=== PATIENT | male | born 2000 | race Caucasian/White ===

== ENCOUNTER 2022-04-01 11:47 | Emergency (ER) | payer OTHER ==
[2022-04-01 11:57] VITALS: BP 137/81
--- NOTE | 2022-04-01 12:15 | ED Physician Documentation ---
History of Present Illness - Stated complaint Stated Complaint: L FINGER LAC - Chief complaint Chief Complaint: Laceration - History obtained from History obtained from: Patient - History of Present Illness Timing: Today Pain level max: 0 Pain level now: 0 - Additonal information Additional information: 21-year-old male was cooking today when he excellently cut the tip of his left index finger with a knife. Unable to control the bleeding at home. Tetanus up-to-date. Patient is right-handed. Review of Systems Constitutional: denies: Fever GI: denies: Vomiting, Diarrhea Skin: denies: Rash Musculoskeletal: denies: Neck pain, Back pain Neurologic: denies: Headache PD PAST MEDICAL HISTORY - Past Medical History Past Medical History: No - Past Surgical History Past Surgical History: No - Present Medications Home Medications: Ambulatory Orders Medication Instructions Recorded Confirmed No Known Home Medications 04/01/22 04/01/22 - Allergies Allergies/Adverse Reactions: Allergies Allergy/AdvReac Type Severity Reaction Status Date / Time No Known Drug Allergies Allergy Verified 04/01/22 11:56 PD ED PE NORMAL - Vitals Vital signs reviewed: Yes - General General: Alert and oriented X 3, No acute distress - Derm Derm: Warm and dry - Extremities Extremities: Other (0.2 cm avulsion to the distal aspect of the left index finger. Still bleeding. Neurovascular intact.) - Neuro Neuro: Alert and oriented X 3 Results - Vitals Vitals: Vital Signs - 24 hr 04/01/22 11:54 Temperature 37 C Heart Rate 79 Respiratory 16 Rate Blood Pressure 137/81 H O2 Saturation 100 Oxygen O2 Source Room air Procedures - General procedure General procedure: Superficial avulsion to the tip of the left index finger. Finger tourniquet applied. Bleeding controlled. Dermabond was applied over the area. The tourniquet was then removed. Excellent hemostasis. No complications. Tetanus up-to-date PD Medical Decision Making - ED course Complexity details: considered differential, d/w patient ED course: Avulsion repaired with Dermabond. Tolerated well. No complications. Tetanus up-to-date. Warnings of infection and instructions on wound care given at bedside. patient counseled regarding signs and symptoms for which I believe and urgent re-evaluation would be necessary. Patient with good understanding of and agreement to plan and is comfortable going home at this time This document was made in part using voice recognition software. While efforts are made to proofread this document, sound alike and grammatical errors may occur. Departure - Departure Disposition: 01 Home, Self Care Clinical Impression: Finger laceration Qualifiers: Encounter type: initial encounter Finger: index finger Damage to nail status: without damage Foreign body presence: without foreign body Laterality: left Qualified Code(s): S61.211A - Laceration without foreign body of left index finger without damage to nail, initial encounter Condition: Good Instructions: ED Laceration Hand Follow-Up: your,doctor as needed [Other] Comments: Keep the wound clean. The glue will fall off on its own. Please return if you worsen. Do not apply ointment as this may dissolve the glue. Return for redness, swelling or drainage from the wound. Discharge Date/Time: 04/01/22 12:24
== END 2022-04-01 12:24 | disposition home or self-care (01) ==
LOC: ED 11:47
DX: S61.211A Laceration without foreign body of left index finger without damage to nail, initial encounter (principal); W26.0XXA Contact with knife, initial encounter; Y93.G1 Activity, food preparation and clean up
CPT/HCPCS: 12001; 99281

== ENCOUNTER 2023-06-07 11:00 | Outpatient (CLI) | payer OTHER ==
--- NOTE | 2023-06-07 11:44 | Sleep Patient Instructions ---
Sleep Center Visit Summary - Patient Visit Information Reason for Visit: Initial consult for evaluation of sleep disordered breathing and other sleep issues. - Patient Instructions Instructions Attached: Sleep Study Home Monitor Additional Instructions: You will be completing a sleep study, either an in-lab polysomnography (PSG) or home sleep study (HST). You will follow-up in the sleep care office after the sleep study is completed to hear the results and talk about therapy, if needed. You will be called by our office staff to schedule this appointment, but you may contact us with any questions. - Clinic Information Contact: [facility] [address] [place] [address] [email or web address] T: [phone]
--- NOTE | 2023-06-07 11:48 | SLEEP CARE CONSULTATION ---
Information from patient questionnaire entered by Christina Rodrigez. I have reviewed and concur with the information entered by Christina Rodrigez. This document represents the service I personally performed and the decisions made by me, Enriqueta Charles ARNP. History of Present Illness Service Date and Time: 06/07/2023 1100 Reason for Visit: New patient Chief Complaint: reports: Snoring, Excessive daytime sleepiness, Observed pauses in breathing, Fatigue (31YRS), Frequent awakenings at night Date of Onset: 1YR Usual bedtime: 2100 Time it takes to fall asleep: 1HR Snores at night: Yes Observed to quit breathing while asleep: Yes Sleeps alone due to snoring: No Number of times waking at night: 2-3 Reasons for waking at night: reports: Bathroom, Other (UNKNOWN). denies: Choking, Snoring, Gasping for air Toss, Turn, or Twitch while sleeping: Yes Recalls having dreams: Yes Usually gets out of bed at: 5AM; weekends [id number] Feels refreshed in the morning: No Morning headache: No Sleepy or fatigued during the day: Yes Ever fallen asleep while driving: No Takes day naps: No (has snored when napping sometimes) Dreams during day naps: Yes Prior sleep studies: No Additional HPI information: I had the pleasure of seeing ROSMERY VALDEZ today regarding the possibility of him having a sleep disorder. His current complaints are excessive daytime sleepiness, fatigue, frequent night awakenings, observed pauses in breathing and snoring. He went for a general checkup and he mentioned that his mentioned snoring, pauses in breathing and gasping in his sleep. He says he does not alw ays waking up feeling refreshed. He does feel fatigued and sleepy during the day but avoids taking naps to try not to "mess with his sleeping schedule". - Parasomnia Symptoms Ever been unable to move upon waking from sleep: Yes (happened more often when younger, 5 times; has not happened in long time) Walks in sleep: No Talks in sleep: No Ever acted out dreams in sleep: No Ever felt weak in the knees when startled or emotional: No Bothered by creepy, crawly, restless sensations in legs: No Problems with memory or concentration: Yes (concentration) Subjective Initial [place] Sleepiness Scale score: 6 (06/07/23) Past Medical History Past Medical History: reports: Other (no significant medical history) Social History The patient's occupation is a AM. Patient is Single and lives in . Have you smoked in the past 12 months: No Alcohol use: Yes Alcohol amount and frequency: 1-3 DRINKS 1-2 X A MONTH Caffeine use: Yes Caffeine amount and frequency: 80-120MG 1TIME DAY 5X WEEK Family History Family history of sleep disordered breathing: Yes Family Hx Sleep Apnea: Father: Snoring, Sleep apnea - Treated, Sibling: Snoring Allergies and Home Medications Known drug allergies: No Drug allergies reviewed: Yes Home medication list reviewed: Yes (no daily meds) Allergy and home medication list: Allergies No Known Drug Allergies Allergy (Verified 06/07/23 11:06) Home Medications No Known Home Medications 04/01/22 [History] Review of Systems Weight gain over past 5 years: 30 Cardiovascular: denies: high blood pressure Gastrointestinal: denies: heartburn Neurological: denies: headaches Psychiatric: denies: anxiety, depression Ear/Nose/Throat: reports: nose bleeds. denies: tonsillectomy (seasonal allergies) Musculoskeletal: reports: neck pain, back pain Immunologic: reports: allergies to food or environment Physical Exam Vital signs obtained and entered by: CHRISTINA Gorman MA Blood Pressure: 131/76 (RIGHT ARM) Cuff size: regular Heart Rate: 70 O2 Saturation: 100 Height: 6 ft 1 in Weight: 194 lb 3.2 oz Body Mass Index: 25.6 BMI Classification: Overweight Neck circumference: 15 Mouth and throat: narrow oropharynx Soft palate: normal Hard palate: normal Uvula: normal Uvula visualization: 50% Mallampati Class II Tongue: enlarged in size with teeth gould on lateral edges Tonsils: 2+ Neck: normal w/o lymphadenopathy or thyromegaly Heart: regular rate and rhythm Lungs: clear bilaterally Impression and Plan 1. Suspected Obstructive Sleep Apnea-Hypopnea Syndrome, as suggested by a history of irregular snoring, observed cessation of breath while asleep, gasping or choking in sleep, frequent awakening during the night, unrefreshed sleep, cognitive impairment, and excessive daytime sleepiness. Narrow oropharynx and obesity are common predisposing factors for obstructive sleep apnea-hypopnea syndrome. I recommend proceeding to polysomnography to confirm the diagnosis and to assess severity. If the patient has significant sleep disordered breathing, a manual CPAP titration study will also be performed to find the optimal treatment pressure. I informed the patient of what the sleep studies involve and after some discussion, obtained agreement to proceed. The pathophysiology of obstructive sleep apnea-hypopnea syndrome was discussed with the patient and health risks of cardiovascular and cerebrovascular disease if not treated. Risks of drowsy driving discussed in detail and patient advised to avoid long distance driving and to cable puller at the first sign of drowsiness. Patient agreed to plan. * Schedule polysomnography. * Avoid long distance driving or driving when feeling sleepy. * Avoid alcohol, sedative and muscle relaxant around bedtime. * Attempt to lose weight. * Review instructions provided by trained office staff on how to prepare for the sleep study. * Return for follow-up after sleep study completed. Plan: PSG/HST and follow up Visit Type: In Office Time Spent with Patient (minutes): 30 Provider Statement: I spent 100% of the Face to Face Visit with the patient with greater than 50% spent counseling the patient and coordination of care.
[2023-06-07 11:57] VITALS: BP 131/76; O2SAT 100
== END 2023-06-07 11:01 | disposition home or self-care (01) ==
LOC: SC 11:00
PROVIDERS: ATTEND Nurse Practitioner Family
DX: R06.83 Snoring (principal); G47.10 Hypersomnia, unspecified; R06.81 Apnea, not elsewhere classified; R53.83 Other fatigue; G47.8 Other sleep disorders; E66.3 Overweight; Z68.25 Body mass index [BMI] 25.0-25.9, adult
CPT/HCPCS: 99203; 99212

== ENCOUNTER 2023-07-10 12:25 | Outpatient (CLI) | payer OTHER | END 2023-07-10 12:26 | disposition home or self-care (01) | LOC: SC 12:25 | PROVIDERS: ATTEND Nurse Practitioner Family | DX: R06.83 Snoring (principal); R06.81 Apnea, not elsewhere classified; G47.10 Hypersomnia, unspecified; R09.02 Hypoxemia; R53.83 Other fatigue; G47.8 Other sleep disorders; E66.3 Overweight; Z68.25 Body mass index [BMI] 25.0-25.9, adult | CPT/HCPCS: 95806 ==

== ENCOUNTER 2023-08-08 08:44 | Outpatient (CLI) | payer OTHER ==
--- NOTE | 2023-08-08 09:08 | Sleep Patient Instructions ---
Sleep Center Visit Summary - Patient Visit Information Reason for Visit: Sleep study follow-up - Patient Instructions Instructions Attached: Snoring Tips Prevent Additional Instructions: Your sleep study today was negative for significant sleep disordered breathing. You were found to have episodes of snoring. There are different ways to control snoring including weight loss, oral devices made by a dentist or surgical options through ENT specialist. You should not use oral devices that do not fit properly because they can affect your bite. You should also check insurance coverage of oral devices for snoring because they may not be cover well. You may obtain a referral to an ENT specialist through your primary provider. Follow-up as needed. - Clinic Information Contact: [facility] [address] [place] [address] [email or web address] T: [phone]
--- NOTE | 2023-08-08 09:11 | SLEEP CARE CONSULTATION ---
Information from patient questionnaire entered by Christina Rodrigez. I have reviewed and concur with the information entered by Christina Rodrigez. This document represents the service I personally performed and the decisions made by , Enriqueta Charles ARNP. History of Present Illness Service Date and Time: 08/08/2023 0844 Initial [place] Sleepiness Scale score: 6 (06/07/23) Current [place] Sleepiness Scale score: 7 (08/08/23) Additional HPI information: ROSMERY VALDEZ returns for follow up and results of the recently performed home sleep study. The patient was informed of the following findings: No significant sleep disordered breathing with an average AHI of 3.6 and yunier oxygen saturation of 88%. I explained the pathophysiology behind obstructive sleep apnea. Patient does not have sleep apnea and was advised how weight gain could increase the risk of developing sleep apnea in the future. Patient has mild snoring. Snoring can be reduced by weight loss. Weight loss is best achieved with diet consult. Patient instructed to contact PCP for referral. Snoring can also be treated with an oral appliance from a dentist. Advised to check insurance coverage. In addition, an ENT evaluation can be do to see if other treatment is indicated. Patient counseled not drink alcohol less than 4 hours before bedtime as it can increase snoring and apnea. Patient was cautioned about risks of drowsy driving until sleepiness symptoms resolve. Patient denies drowsy driving. Sleep Study - Results Type of Sleep Study: Home sleep study (COMPLETED 07/10/23) Prior sleep studies: No Polysomnography/Home Sleep Study results: Physician Impression: The quality of the study is good. The length of the study is adequate (> 240 minutes). Please also see the tabulated and graphic data. 1. No significant sleep disordered breathing, with an AHI of 3.6/hr and yunier SaO2 of 88%. During the study, the patient had 12 apneas (12 obstructive, 0 central, 0 mixed) and 14 hypopneas. The longest episode lasted 63.5 seconds. The few respiratory events occurred more frequently during supine sleep (supine AHI was 4.6 and non-supine, 1.61). 2. Hypoxemia (ICD-10 R09.02), minimal, with the lowest oxygen saturation of 88 % and 0.5 minutes with SaO2 under 90%. Baseline oxygen saturation was normal (Average oxygen saturation was 96%). Allergies and Home Medications Known drug allergies: No Drug allergies reviewed: Yes Home medication list reviewed: Yes (no changes) Allergy and home medication list: Allergies No Known Drug Allergies Allergy (Verified 08/06/23 10:48) Review of Systems Review of systems same as previous: Yes (NO CHANGE) Physical Exam Vital signs obtained and entered by: CHRISTINA Gorman MA Blood Pressure: 129/80 (RIGHT ARM) Cuff size: regular Heart Rate: 61 O2 Saturation: 100 Height: 6 ft 1 in Weight: 190 lb 6.4 oz Body Mass Index: 25.1 BMI Classification: Overweight Impression and Plan 1. Snoring but no significant sleep disordered breathing. Patient advised that often weight loss will reduce snoring as well as apnea risk. An oral appliance can also be used for snoring. This would require a dental consultation. Patient cautioned not to use other online appliances as can cause bite issues. Patient is advised to check if insurance will cover. An ENT consult can also be helpful to determine if any other treatment is an option. 2. Currently patients BMI is 25.1. Obesity increases the risk of apnea and overall health risks especially cardiovascular and diabetes. Thus patient is advised to maintain a healthy weight. * Maintain a healthy weight * Avoid alcohol consumption near bedtime * Return as needed for follow up. Counseling Topics: Weight control Follow up with Sleep Care in: as needed Visit Type: In Office Time Spent with Patient (minutes): 16 Provider Statement: I spent 100% of the Face to Face Visit with the patient with greater than 50% spent counseling the patient and coordination of care.
[2023-08-08 09:17] VITALS: BP 129/80; O2SAT 100
== END 2023-08-08 08:45 | disposition home or self-care (01) ==
LOC: SC 08:44
PROVIDERS: ATTEND Nurse Practitioner Family
DX: R06.83 Snoring (principal); E66.9 Obesity, unspecified; Z68.25 Body mass index [BMI] 25.0-25.9, adult
CPT/HCPCS: 99212